=== PATIENT | male | born 1990 | race Caucasian/White ===

== ENCOUNTER 2016-11-07 06:05 | Emergency (ER) | payer OTHER ==
--- NOTE | 2016-11-07 06:53 | XR ---
EXAM: XR Chest, 2 Views. CLINICAL HISTORY: Cough TECHNIQUE: Frontal and lateral views of the chest. COMPARISON: No relevant prior studies available. FINDINGS: Lungs: Unremarkable. No consolidation. Pleural space: Unremarkable. No pneumothorax. Heart: Unremarkable. No cardiomegaly. Mediastinum: Unremarkable. Bones/joints: Unremarkable. IMPRESSION: Normal chest x-rays.
--- NOTE | 2016-11-07 07:14 | ED ---
Chest Pain HPI - General Chief Complaint: Chest Pain Stated Complaint: chest pain Time Seen by Provider: 11/07/16 06:16 Source: patient, RN notes reviewed Mode of arrival: ambulatory Limitations: no limitations - History of Present Illness Initial Comments: Is a 26-year-old male with a benign History Who States He Has Had Flu Symptoms for Last 3-4 Days. He Does Complain of Right Chest Wall Pain Is Sharp in Nature. It Started. 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 He denies any cough or phlegm production this time no fevers chills or sweats. He has of a slight headache he states. MD Complaint: chest pain - Related Data Previous Rx's Medication Instructions Recorded Cyclobenzaprine [Flexeril] 10 mg PO TID #14 tab 11/07/16 Ibuprofen [Motrin] 800 mg PO Q6HR PRN #20 tab 11/07/16 Allergies Allergy/AdvReac Type Severity Reaction Status Date / Time No Known Allergies Allergy Verified 11/07/16 06:10 Review of Systems ROS Statement: Those systems with pertinent positive or pertinent negative responses have been documented in the HPI. ROS Other: All systems not noted in ROS Statement are negative. EKG Findings - EKG Results: EKG: interpreted by GIANCARLO ASTORGA, sinus rhythm, normal axis, normal QRS, normal ST/ T, no acute changes (EKG shows a sinus rhythm of 63 HI interval 156 QRS duration 162 since QTC 378/[address]-T wave changes.) Past Medical History Past Medical History: No Reported History History of Any Multi-Drug Resistant Organisms: None Reported Past Surgical History: No Surgical Hx Reported Past Psychological History: No Psychological Hx Reported Smoking Status: Never smoker Past Alcohol Use History: None Reported Past Drug Use History: None Reported General Exam Limitations: no limitations Course Vital Signs 11/07/16 06:07 Temperature 98.4 F Pulse Rate 78 Respiratory 20 Rate Blood Pressure 122/74 O2 Sat by Pulse 99 Oximetry Chest Pain MDM - MDM The x-rays negative for acute findings. I did a long discussion with the patient has regarding the findings the presentation is consistent with costochondritis. We also discussed the influenza possibility the patient's will be on the Disposition Clinical Impression: Costalchondritis, Unstable angina pectoris Disposition: HOME SELF-CARE Instructions: Costochondritis (ED) Prescriptions: Cyclobenzaprine [Flexeril] 10 mg PO TID #14 tab Ibuprofen [Motrin] 800 mg PO Q6HR PRN #20 tab PRN Reason: Pain
[2016-11-07 07:38] VITALS: BP 116/63; PULSE 83; RESP 18; TEMP 98.3
== END 2016-11-07 07:38 | disposition home or self-care (01) ==
LOC: EC 06:05
DX: M94.0 Chondrocostal junction syndrome [Tietze] (principal); I20.0 Unstable angina
CPT/HCPCS: 71020; 93005; 99285

== ENCOUNTER 2021-03-13 | Emergency (ER) | payer BC | END 2021-03-13 21:09 | disposition home or self-care (01) | CPT/HCPCS: 72131; 99283 ==

== ENCOUNTER → 2021-03-28 | Outpatient (CLI) | payer BC ==
--- NOTE | 2021-03-28 13:01 | MR ---
EXAMINATION TYPE: MR lumbar spine wo con DATE OF EXAM: 03/28/2021 COMPARISON: 03/18/2021 HISTORY: Low back pain TECHNIQUE: Multiplanar, multisequence images of the lumbar spine were acquired. L1-L2: Normal disc appearance without desiccation. No herniation, protrusion or disc bulging. No ca nal stenosis is present. Foramina are patent bilaterally. L2-L3: Normal disc appearance without desiccation. No herniation, protrusion or disc bulging. No ca nal stenosis is present. Foramina are patent bilaterally. L3-L4: Normal disc appearance without desiccation. No herniation, protrusion or disc bulging. No ca nal stenosis is present. Foramina are patent bilaterally. L4-L5: Normal disc appearance without desiccation. No herniation, protrusion or disc bulging. No ca nal stenosis is present. Foramina are patent bilaterally. L5-S1: There is a right paracentral disc extrusion extending 6 mm below the disc height level with ma ss effect upon the traversing right S1 and S2 nerve roots. Lumbar segments are intact. No paraspinal masses are identified. Conus medullaris has a normal appe arance. IMPRESSION: L5-S1: There is a right paracentral disc extrusion extending 6 mm below the disc height level with ma ss effect upon the traversing right S1 and S2 nerve roots.
== END | disposition home or self-care (01) ==
LOC: RADMRIMAIN 11:13
PROVIDERS: ATTEND Orthopaedic Surgery
DX: M51.27 Other intervertebral disc displacement, lumbosacral region (principal)
CPT/HCPCS: 72148

== ENCOUNTER 2021-05-30 05:59 | Day surgery (SDC) | payer BC ==
[2021-05-29 09:18] VITALS: BMI 26.4
[2021-05-30] MEDS ORDERED: LACTATED RINGERS 1,000 ML IV SCH (06:25)
== END 2021-05-30 06:20 | disposition home or self-care (01) ==
LOC: ORPAIN 05:59
PROVIDERS: ATTEND Specialist
DX: M51.26 Other intervertebral disc displacement, lumbar region (principal); Z53.9 Procedure and treatment not carried out, unspecified reason

== ENCOUNTER → 2024-01-12 | Outpatient (CLI) | payer BC ==
--- NOTE | 2024-01-12 16:23 | US ---
EXAMINATION TYPE: US kidneys/renal and bladder DATE OF EXAM: 01/12/2024 COMPARISON: NONE CLINICAL INDICATION: Male, 33 years old with history of R30.9 PAINFUL MICTURITION, UNSPECIFIED; EXAM MEASUREMENTS: Right Kidney: 11.1 x 4.6 x 5.9 cm Left Kidney: 11.9 x 5.6 x 5.7 cm Right Kidney: no hydronephrosis or masses seen Left Kidney: no hydronephrosis or masses seen Bladder: wnl Bilateral Jets seen: yes There is no evidence for hydronephrosis at this point in time. No nephrolithiasis is seen. No valery s are identified. The urinary bladder is anechoic. Bilateral ureteral jets are seen. IMPRESSION: No evidence for obstructive uropathy. No renal calculi.
== END | disposition home or self-care (01) ==
LOC: RADUSWWP 15:42
PROVIDERS: ATTEND Internal Medicine
DX: R30.9 Painful micturition, unspecified (principal)
CPT/HCPCS: 76770